=== PATIENT | female | born 1960 | race Caucasian/White ===

== ENCOUNTER 2016-07-16 06:20 | Day surgery (SDC) | payer BC, OTHER ==
[2016-07-16] MEDS ORDERED: Lactated Ringers 1,000 ML IV SCH (07:00)
[2016-07-16] MEDS ORDERED: Propofol 200 MG/20 ML SDV ONE ×2 (07:19→07:48)
[2016-07-16] MEDS ORDERED: Midazolam 1 MG/ML 2 ML SDV ONE (07:20)
[2016-07-16] MEDS ORDERED: fentaNYL 100 MCG/2 ML SDV ONE (07:20)
[2016-07-16 09:25] VITALS: BP 138/78
--- NOTE | 2016-07-16 09:49 | OR ---
DATE OF PROCEDURE: 07/16/2016 PREOPERATIVE DIAGNOSIS: Strong family history of colon cancer. Father had colon cancer. Personal history of colon polyps. POSTOPERATIVE DIAGNOSIS: Two right colon polyps adjacent to each other, small hepatic flexure polyp, small polyp 15 cm from the anal verge. PROCEDURE PERFORMED: Colonoscopy to the cecum with biopsy and snare cautery polypectomy ofright colon polyp. Biopsy resection of a small right colon polyp sent with the other right colon polyp to pathology. Biopsy resection of small hepatic flexure polyp. Biopsy resection of small polyp 15 cm from the anal verge. Surgeon: Bonifacio Mancilla MD FACS ANESTHESIA: IV anesthesia with monitored anesthesia care. INDICATION: This 56-year-old white female was referred for a colonoscopy. She has a strong family history of colon cancer. Father had colon cancer. Additionally, she apparently has had some colon polyps. She says her last colonoscopic exam was done six years ago. I counseled her for the procedure including risks and alternatives, and she gave her informed consent to proceed. PROCEDURE IN DETAIL: The patient was placed in the left lateral decubitus position. IV anesthesia was administered by the Anesthesia Service. Time-out was held. A rectal exam was performed, which was unremarkable. The flexible video Olympus colonoscope was introduced through her anus, up her rectum, and out her colon all the way to the cecum. Once the cecum was reached, the scope was slowly withdrawn examining the mucosa throughout. In the right colon a polyp was seen. This was initially biopsied. It was too large to remove using this technique. A snare was passed about its base. It was elevated up away from the bowel wall and amputated as electrocautery was applied. It was aspirated through the scope and captured in a polyp trap. Adjacent to this was another small polyp, this was removed with the biopsy forceps and was sent to pathology with the first polyp. The scope was withdrawn. Another polyp was seen at the hepatic flexure which was small and removed with the biopsy forceps. The scope was withdrawn further with no other lesions noted until we reached the area about 15 cm from anal verge. Here another small polyp was seen, which was removed with the biopsy forceps. The scope was brought back into the rectum, where it was retroflexed. The distal rectum appeared unremarkable. The scope was straightened and removed. She tolerated the procedure well. Bonifacio Mancilla MD /[id number] JOSE
== END 2016-07-16 09:35 | disposition home or self-care (01) ==
LOC: JP.SDS 06:20
PROVIDERS: ATTEND Surgery
PROC: 0DBK8ZX Excision of Ascending Colon, Via Natural or Artificial Opening Endoscopic, Diagnostic (ICD-10-PCS; principal; 2016-07-16)
PROC: 0DBE8ZX Excision of Large Intestine, Via Natural or Artificial Opening Endoscopic, Diagnostic (ICD-10-PCS; 2016-07-16)
DX: Z12.11 Encounter for screening for malignant neoplasm of colon (principal); D12.2 Benign neoplasm of ascending colon; D12.3 Benign neoplasm of transverse colon; D17.79 Benign lipomatous neoplasm of other sites; K63.5 Polyp of colon; Z80.0 Family history of malignant neoplasm of digestive organs
CPT/HCPCS: 45380; 45385; J2250; J2704; J3010; J7120; 88305

== ENCOUNTER 2017-11-18 07:04 | Day surgery (SDC) | payer OTHER ==
[2017-11-18] MEDS ORDERED: Lactated Ringers 1,000 ML IV SCH (07:15)
[2017-11-18] MEDS ORDERED: fentaNYL 100 MCG/2 ML SDV ONE (07:23)
[2017-11-18] MEDS ORDERED: Propofol 200 MG/20 ML SDV ONE (07:23)
[2017-11-18] MEDS ORDERED: Midazolam 1 MG/ML 2 ML SDV ONE (07:23)
[2017-11-18 10:27] VITALS: BP 116/58
--- NOTE | 2017-11-18 12:16 | OR ---
DATE OF PROCEDURE: 11/18/2017 PREOPERATIVE DIAGNOSES: 1. Personal history of adenomatous polyps. 2. Father had colon cancer. POSTOPERATIVE DIAGNOSES: 1. Unremarkable colonoscopy. 2. Personal history of adenomatous polyps. 3. Father had colon cancer. PROCEDURE: Colonoscopy to the cecum. SURGEON: Bonifacio Mancilla MD. ANESTHESIA: IV anesthesia with monitored anesthesia care. INDICATION: This 57-year-old white female is referred for a colonoscopy. Her father had colon cancer. She has a personal history of multiple adenomatous polyps. Her last colonoscopic exam was done about a year and a half ago. I counseled her for the procedure including risks, alternatives, and she gave her informed consent to proceed. DESCRIPTION OF PROCEDURE: The patient was placed in the left lateral decubitus position. IV anesthesia was administered by the Anesthesia Service. Time-out was held. A rectal exam was performed, which was unremarkable. The flexible video Olympus colonoscope was introduced through her anus, up her rectum, and out her colon all the way to the cecum. Once the cecum was reached, the scope was slowly withdrawn examining the mucosa throughout. No mucosal abnormalities were noted. The scope was retroflexed in the rectum with the distal rectum appearing unremarkable. The scope was straightened and removed. She tolerated the procedure well. Bonifacio Mancilla MD /[id number]
== END 2017-11-18 10:25 | disposition home or self-care (01) ==
LOC: JP.SDS 07:04
PROVIDERS: ATTEND Surgery
DX: Z09 Encounter for follow-up examination after completed treatment for conditions other than malignant neoplasm (principal); K21.9 Gastro-esophageal reflux disease without esophagitis; E66.9 Obesity, unspecified; Z68.31 Body mass index [BMI] 31.0-31.9, adult; Z86.010 Personal history of colon polyps; Z80.0 Family history of malignant neoplasm of digestive organs; Z79.899 Other long term (current) drug therapy
CPT/HCPCS: 45378; J2250; J2704; J3010; J7120

== ENCOUNTER 2021-01-12 06:39 | Day surgery (SDC) | payer OTHER ==
[2021-01-12] MEDS ORDERED: Sodium Chloride 0.9% 1,000 ML IV SCH (07:00)
[2021-01-12] MEDS ORDERED: fentaNYL 100 MCG/2 ML SDV ONE (07:00)
[2021-01-12] MEDS ORDERED: Midazolam 1 MG/ML 2 ML SDV ONE (07:00)
[2021-01-12] MEDS ORDERED: Propofol 200 MG/20 ML SDV ONE (07:00)
[2021-01-12 09:00] VITALS: BP 149/94; PULSE 59
--- NOTE | 2021-01-12 09:56 | OR ---
DATE OF PROCEDURE: 01/12/2021 SURGEON: Chris Slater MD PROCEDURE: Colonoscopy. FINDINGS: Normal colonoscopy. COMPLICATIONS: None. AUTOMATIC DATA PROCESSING PLANNER: None. ANESTHESIA: MAC. PREOPERATIVE DIAGNOSIS: Family history of colorectal cancer. POSTOPERATIVE DIAGNOSIS: Family history of colorectal cancer. RISKS: Risks, benefits, alternatives, and limitations including, but not limited to infection, bleeding, perforation, false positives, and false negatives were explained to the patient and she wished to proceed. PROCEDURE IN DETAIL: The patient was placed in left lateral decubitus position. Digital rectal exam was performed without abnormality. Scope was introduced and advanced atraumatically to the ileocecal valve. A photo was taken of the appendiceal orifice. Scope was brought back to the ascending, transverse, descending colon, and retroflexed. No evidence of old or new blood. No masses. No polyps. No diverticulosis. No colitis. Greater than 8 minutes was spent removing the scope. The prep was acceptable, approximately 95% of the luminal surface could be seen. The patient tolerated the procedure well. Chris Slater MD /[id number]
== END 2021-01-12 09:02 | disposition home or self-care (01) ==
LOC: JP.SDS 06:39
PROVIDERS: ATTEND Surgery
DX: Z12.11 Encounter for screening for malignant neoplasm of colon (principal)
CPT/HCPCS: J2250; J2704; J3010; J7030

== ENCOUNTER 2024-06-29 18:11 | Emergency (ER) | payer OTHER ==
[2024-06-29] MEDS: methylPREDNISolone Sodium Succinate 125 MG/2 ML SDV IVPUSH ONE (18:30)
[2024-06-29] MEDS: Famotidine 20 MG/2 ML SDV IVPUSH ONE (18:44)
[2024-06-29] MEDS: Sodium Chloride 0.9% 1,000 ML IV ONE (18:44)
[2024-06-29 18:49] LABS: BASOPHILS ABSOLUTE AUTO 0.04 K/uL (0.00-0.10); BASOPHILS PERCENT AUTO 0.6 % (0.1-1.3); EOSINOPHILS ABSOLUTE AUTO 0.05 K/uL (0.00-0.40); EOSINOPHILS PERCENT AUTO 0.7 % (0.0-5.4); HEMATOCRIT 44.3 % (34.3-46.0); HEMOGLOBIN 14.3 g/dL (11.2-15.5); IMMATURE GRAN PERCENT AUTO 0.3 % (0.0-0.7); LYMPHOCYTES ABSOLUTE AUTO 1.37 K/uL (0.8-3.3); LYMPHOCYTES PERCENT AUTO 19.1 % (11.4-47.7); MEAN CORPUSCULAR HEMOGLOBIN 28.8 pg (31.6-35.5); MEAN CORPUSCULAR HGB CONC 32.3 g/dL (31.6-35.5); MEAN CORPUSCULAR VOLUME 89.3 fL (81.4-99.0); MONOCYTES ABSOLUTE AUTO 0.51 K/uL (0.20-0.90); MONOCYTES PERCENT AUTO 7.1 % (3.3-12.6); NEUTROPHILS ABSOLUTE AUTO 5.19 K/uL (1.0-7.6); NEUTROPHILS PERCENT AUTO 72.2 % (40.0-78.1); PLATELET COUNT,PLT 217 K/uL (130-375); RED BLOOD CELL COUNT 4.96 M/uL (3.77-5.24); WHITE BLOOD CELL COUNT,WBC 7.2 K/uL (3.2-11.0)
[2024-06-29 18:50] LABS: IMMATURE GRAN ABSOLUTE AUTO 0.02 K/uL (0.00-0.23)
[2024-06-29 19:06] LABS: ANION GAP 7.7 mmol/L (5.0-14.0); CALCIUM 8.9 mg/dL (8.5-10.1); CREATININE 1.1 mg/dL (0.6-1.0); POTASSIUM,K 3.8 mmol/L (3.6-5.2)
[2024-06-29 21:55] VITALS: BP 154/84; PULSE 86
== END 2024-06-29 21:55 | disposition home or self-care (01) ==
LOC: JP.ED 18:11
DX: T78.40XA Allergy, unspecified, initial encounter (principal); M27.0 Developmental disorders of jaws; E66.9 Obesity, unspecified; Z79.899 Other long term (current) drug therapy; Z68.35 Body mass index [BMI] 35.0-35.9, adult
CPT/HCPCS: 36415; 80048; 85025; 96374; 96375; 99284; J2919; J7030